=== PATIENT | male | born 1950 | race African-American/Black ===

== ENCOUNTER → 2016-04-02 | Outpatient (CLI) | payer MEDICARE ==
[2016-04-02 08:11] LABS: Urine RBC None Seen /hpf (0 - 3)
[2016-04-02 08:13] LABS: Basophils # (auto) 0.3 uL; DEFINITIVE VIEW TRANSMISSION; Eosinophils # (auto) 0.2 uL; Eosinophils % (auto) 3.4 % (0.0-7.0); Hematocrit 38.3 % (41.0-53.0); Lymphocytes # (auto) 3.2 uL; Lymphocytes % (auto) 47.5 % (10.0-50.0); Mean Corpuscular Hemoglobin 27.6 pg (28.0-32.0); Mean Corpuscular Hgb Conc. 31.4 g/dL (32.0-36.0); Mean Corpuscular Volume 87.8 fL (80.0-100.0); Mean Platelet Volume 10.2 fL (7.4-10.4); Monocytes # (auto) 0.6 uL; Monocytes % (auto) 8.6 % (0.0-12.0); Neutrophils # (auto) 2.4 uL; Platelet Count (auto) 199 10^3/uL (140-450); Red Cell Distribution Width 12.2 % (11.6-16.0); SUSPECT VIEW TRANSMISSION; White Blood Cell 6.7 10^3/uL (4.4-10.8)
[2016-04-02 08:14] LABS: Basophils % (auto) 0.6 % (0.0-2.0); Neutrophils % (auto) 39.9 % (37.0-80.0)
[2016-04-02 08:26] LABS: Urine Bilirubin Negative (Negative); Urine Blood Negative /uL (Negative); Urine Color Yellow (Yellow); Urine Glucose Normal (Normal); Urine Ketone Negative (Negative); Urine Nitrite Negative (Negative); Urine Urobilinogen Normal (Negative)
[2016-04-02 08:43] LABS: Albumin 3.8 g/dL (3.4-5.0); BUN/Creatinine Ratio 10.3; Calcium 9.1 mg/dL (8.5-10.1); Potassium 4.5 mmol/L (3.5-5.1); Total Protein 7.8 g/dL (6.4-8.2)
== END | disposition home or self-care (01) ==
LOC: LAB 06:48
PROVIDERS: ATTEND Family Medicine
DX: I10 Essential (primary) hypertension (principal)
CPT/HCPCS: 36415; 80053; 80061; 81001; 82043; 82607; 83036; 84153; 85025

== ENCOUNTER → 2016-10-31 | Outpatient (CLI) | payer MEDICARE, MEDICAID ==
[2016-10-31 08:00] LABS: Urine RBC None Seen /hpf (0 - 3)
[2016-10-31 08:12] LABS: Urine Bilirubin Negative (Negative); Urine Blood Negative /uL (Negative); Urine Color Yellow (Yellow); Urine Glucose Normal (Normal); Urine Ketone Negative (Negative); Urine Nitrite Negative (Negative); Urine Squamous Epithelial Cell FEW /hpf (<5); Urine Urobilinogen Normal (Negative)
[2016-10-31 08:34] LABS: Albumin 3.4 g/dL (3.4-5.0); Alkaline Phosphatase 57 U/L (45-117); Anion Gap 8 (5-15); Aspartate Aminotransferase 26 U/L (15-37); BUN/Creatinine Ratio 11.9; Bilirubin, Total 0.4 mg/dL (0.2-1.0); Blood Urea Nitrogen 12 mg/dL (7-18); Calcium 8.5 mg/dL (8.5-10.1); Carbon Dioxide 26 mmol/L (21-32); Chloride 106 mmol/L (98-107); Cholesterol 196 mg/dL (< 200); GFR African American 95 mL/min; GFR Non-African American 79 mL/min; Glucose 175 mg/dL (74-106); HDL Cholesterol 26 mg/dL (40-59); Potassium 3.7 mmol/L (3.5-5.1); Sodium 140 mmol/L (136-145); Total Protein 7.4 g/dL (6.4-8.2); Triglycerides 915 mg/dL (< 150)
== END | disposition home or self-care (01) ==
LOC: LAB 07:14
PROVIDERS: ATTEND Family Medicine
DX: I10 Essential (primary) hypertension (principal); E11.9 Type 2 diabetes mellitus without complications; R97.20 Elevated prostate specific antigen [PSA]
CPT/HCPCS: 36415; 80053; 80061; 81001; 82043; 83036; 84153

== ENCOUNTER 2020-02-17 11:13 | Inpatient (IN) | payer BC, MEDICAID ==
[~2020-02-17] VITALS: Ht 180.3 cm; Wt 80.9 kg
[2020-02-17 12:07] LABS: Urine Bacteria NONE SEEN /hpf (None Seen); Urine Blood Negative /uL (Negative); Urine Hyaline Cast MOD /lpf (0 - 2); Urine Mucus FEW (None Seen); Urine Specific Gravity 1.023 (1.001-1.035); Urine WBC 4 /hpf (0 - 3)
[2020-02-17] MEDS ORDERED: SODIUM CHLORIDE 0.9% 1,000 ML IV ONE (12:30)
[2020-02-17] MEDS ORDERED: NITROGLYCERIN 0.4 MG SL TAB SL PRN ×2 (14:00→15:00)
[2020-02-17] MEDS ORDERED: MORPHINE SULF INJ 2 MG/ML SYRINGE 1ML IV PRN ×2 (14:00→15:00)
[2020-02-17 14:06] LABS: Platelet Count (auto) 343 10^3/uL (140-450)
[2020-02-17 14:09] LABS: Hematocrit 27.6 % (41.0-53.0); Hemoglobin 8.9 g/dL (13.5-17.5); Mean Corpuscular Hemoglobin 23.5 pg (28.0-32.0); Mean Corpuscular Volume 73.3 fL (80.0-100.0); Red Blood Cells 3.77 10^6/uL (4.5-5.90); Red Cell Distribution Width 18.4 % (11.8-14.3); White Blood Cell 6.6 10^3/uL (4.4-10.8)
[2020-02-17 14:22] LABS: Basophils % (manual) 0 (0.0-2.0); Blast Cells 0; Metamyelocytes % 0; Myelocytes % 0; Promyelocytes % 0; Reactive Lymphocytes 0
[2020-02-17 14:23] LABS: Albumin 2.7 g/dL (3.4-5.0); Potassium 4.1 mmol/L (3.5-5.1)
[2020-02-17 14:27] LABS: BUN/Creatinine Ratio 10.4; Bilirubin, Total 0.6 mg/dL (0.2-1.0); Total Protein 8.6 g/dL (6.4-8.2)
[2020-02-17 14:51] LABS: Band Neutrophils % (manual) 1; Eosinophils % (manual) 2 (0-7); Lymphocytes % (manual) 25 (10.0-50.0); Monocytes % (manual) 14 (0-12)
[2020-02-17] MEDS ORDERED: DOCUSATE SOD 100 MG CAP PO PRN (15:00)
[2020-02-17] MEDS ORDERED: ONDANSETRON HCL 4 MG/2 ML VIAL IV PRN (15:00)
[2020-02-17] MEDS ORDERED: ALUM & MAG HYDROX-SIMETH LIQ(MAALOX) 30 ML PO PRN (15:00)
[2020-02-17] MEDS ORDERED: ACETAMINOPHEN 325 MG TAB PO PRN (15:00)
[2020-02-17] MEDS ORDERED: LORazepam 0.5 MG TAB PO PRN (15:00)
[2020-02-17] MEDS ORDERED: hydrALAZINE HCL 20 MG/ML VL IV PRN (15:00)
[2020-02-17] MEDS ORDERED: DEXTROSE (50%) 50ML SYRG IV PRN (15:00)
[2020-02-17] MEDS ORDERED: HYDROcodone-ACET 5/325MG TAB PO PRN (15:00)
[2020-02-17] MEDS: ACCU-CHEK COMFORT CURVE STRIP VI SCH ×2 (17:00→21:26)
--- NOTE | 2020-02-17 18:08 | NUR ---
Telemetry admit from ER: WENDIE MCDUFFIE admitted to Telemetry unit after SBAR received. Patient oriented to [facility] SKINNER RN primary RN, unit, room, bed, and unit policies regarding patient care and visiting hours. Patient now on continuous telemetry monitoring, tele box # [id number] and telemetry reading on arrival to unit is SR 79. Patient weighed by bedscale and encouraged to call if they need something. All questions and concerns addressed, patient verbalized understanding.
[2020-02-17 18:19] VITALS: BP 114/84
--- NOTE | 2020-02-17 18:38 | NUR ---
ASSESSMENT PERFORMED. PATIENT STATES HE WILL HAVE HIS BRING IN A LIST OF HIS HOME MEDICATIONS.
[2020-02-17] MEDS: InsuLIN REG 1unit/0.01ml Soln (100units/ml) SC SCH ×2 (18:41→21:29)
[2020-02-17] MEDS: SODIUM CHLORIDE 0.9% 1,000 ML IV SCH (18:41)
--- NOTE | 2020-02-17 18:42 | NUR ---
[facility] SWAB COLLECTED AND SENT
[2020-02-17] MEDS ORDERED: INFLUENZA QUAD 2020-2021 0.5 ML SYRG IM ONE (18:45)
[2020-02-17] MEDS ORDERED: PNEUMOCOCCAL VACC POLYS 25 MCG/0.5 ML VIAL IM ONE (18:45)
--- NOTE | 2020-02-17 18:50 | NUR ---
CLOSING NOTE: PATIENT RESTING IN BED. NO S/S OF DISTRESS. BELONGINGS SHEET ENDORSED.
[2020-02-17] MEDS: MORPHINE SULF INJ 2 MG/ML SYRINGE 1ML IV PRN (19:59)
[2020-02-17 22:00] VITALS: BP 100/69
[2020-02-18 05:00] VITALS: BP 93/62
[2020-02-18] MEDS: InsuLIN REG 1unit/0.01ml Soln (100units/ml) SC SCH ×2 (06:24→11:30)
[2020-02-18] MEDS: ACCU-CHEK COMFORT CURVE STRIP VI SCH ×2 (06:24→11:30)
--- NOTE | 2020-02-18 07:30 | NUR ---
Opening Shift Note Assumed care of patient, awake and alert. No S/S of distress/SOB or pain. Instructed on POC and to callfor assist PRN, will continue to monitor for changes Q1hr and PRN. Fall and safety precautions in place. Call light within reach.
[2020-02-18] MEDS ORDERED: GLIP5TAB12 PO ×2 (07:32→11:19)
[2020-02-18] MEDS ORDERED: ATOR20TA50 PO ×2 (07:32→11:19)
[2020-02-18] MEDS ORDERED: OMEP-260 PO ×2 (07:32→11:19)
[2020-02-18] MEDS ORDERED: HYDR-531 (07:32)
[2020-02-18] MEDS ORDERED: METO25TA93 PO (07:32)
[2020-02-18] MEDS ORDERED: LISI2.5T47 PO ×2 (07:32→11:19)
[2020-02-18] MEDS ORDERED: AMLO10TA13 PO (07:32)
[2020-02-18 08:59] LABS: Urine Bacteria NONE SEEN /hpf (None Seen); Urine Blood Negative /uL (Negative); Urine Specific Gravity 1.014 (1.001-1.035); Urine WBC <1 /hpf (0 - 3)
[2020-02-18 09:00] VITALS: BP 100/64
[2020-02-18] MEDS: SODIUM CHLORIDE 0.9% 1,000 ML IV SCH (09:05)
[2020-02-18 09:14] LABS: Alcohol, Urine < 3.0 mg/dL (0-10); Amphetamine Screen, Urine NEGATIVE (NEGATIVE); Barbiturate Scree,Urine NEGATIVE (NEGATIVE); Benzodiazephine Screen, Urine NEGATIVE (NEGATIVE); Cannabinoid Screen, Urine POSITIVE (NEGATIVE); Cocaine Screen, Urine NEGATIVE (NEGATIVE); Opiate Scree,Urine POSITIVE (NEGATIVE); Phencyclidine Screen, Urine NEGATIVE (NEGATIVE)
[2020-02-18] MEDS: MORPHINE SULF INJ 2 MG/ML SYRINGE 1ML IV PRN (09:15)
[2020-02-18] MEDS ORDERED: HYDR-531 PO ×2 (11:17→11:18)
[2020-02-18] MEDS ORDERED: AMLO5TAB15 PO (11:19)
[2020-02-18] MEDS ORDERED: HYDR-4833 PO (11:20)
[2020-02-18 13:00] VITALS: BP 105/63
[2020-02-18 13:15] VITALS: BP 105/63
[2020-02-18 14:00] VITALS: BP 105/63
--- NOTE | 2020-02-18 15:13 | NUR ---
Discharge instructions given as ordered. Encourage to follow up with PMD as instructed. All questions and concerns addressed. Patient verbalized understanding. Medication reconciliation form completed and copy given to patient. IV removed with catheter intact, pressure dressing applied, arambula catheter removed. Telemetry unit returned to ICU. Patient taken to vehicle via wheelchair with all personal belongings, accompanied by staff member. No distress noted at time of departure.
== END 2020-02-18 15:16 | disposition home or self-care (01) | DRG 374 ==
LOC: ER 11:13 → TELE 11:14 → TELE-WESTW 18:00
PROVIDERS: ADMIT Hospitalist; ATTEND Hospitalist
DX: C17.0 Malignant neoplasm of duodenum (principal); E43 Unspecified severe protein-calorie malnutrition; R64 Cachexia; E11.9 Type 2 diabetes mellitus without complications; E78.5 Hyperlipidemia, unspecified; F17.200 Nicotine dependence, unspecified, uncomplicated; G89.29 Other chronic pain; I10 Essential (primary) hypertension; K57.30 Diverticulosis of large intestine without perforation or abscess without bleeding; K80.20 Calculus of gallbladder without cholecystitis without obstruction; N40.0 Benign prostatic hyperplasia without lower urinary tract symptoms; Z68.24 Body mass index [BMI] 24.0-24.9, adult; M54.9 Dorsalgia, unspecified; D50.0 Iron deficiency anemia secondary to blood loss (chronic)
CPT/HCPCS: 36415; 71045; 74176; 80053; 80061; 80307; 81001; 82150; 82962; 83036; 83690; 84484; 85007; 85027; 87040; 87081; 87086; G0378; J1815; J2405